=== PATIENT | female | born 1945 | race Caucasian/White ===

== ENCOUNTER → 2016-12-26 | Outpatient (CLI) | payer MEDICARE ==
--- NOTE | 2016-12-27 15:43 | HM ---
Date Performed: 12/26/2016 Time Performed: 11:14:00 HOOKUP DATE: 12/26/16 11:14:00 AM Mon ANALYSIS START TIME: 12/26/2016 11:19:00 AM ANALYSIS END TIME: 12/27/2016 10:50:52 AM PATIENT AGE: 71 PATIENT HEIGHT PATIENT WEIGHT DRUG LIST PATIENT DIAGNOSIS: SYNCOPE TEST NARRATIVE: The patient's average heart rate was 75 BPM. Heart rates greater than 120 B PM were noted < 1% of the time. No episodes of bradycardia were noted. No pauses exceeding 2.0 s econds were noted. 172 ventricular ectopics, which represented < 1% of the total beat count, were noted. The highest ventricular ectopic frequency occurred from 01:00 PM to 02:00 PM Mon. During th is time 28 VE(s) occurred. Ventricular ectopics were observed as 166 isolated beat(s) and as 3 coupl et(s). No runs were noted. 15 supraventricular ectopics, which represented < 1% of the total buddy t count, were noted. The highest supraventricular ectopic frequency occurred from 01:00 AM to 02:00 AM Tue. During this time 3 SVE(s) occurred. Multiple episodes of ST depression (defined as -1.0 mm or more) were noted in channel 1. The maximum depression of -1.8 mm occurred at 06:15:36 PM Mon. No episodes of ST depression (defined as -1.0 mm or more) were noted in channel 2. No episodes of ST depression (defined as -1.0 mm or more) were noted in channel 3. No diary events were reporte d by the patient. TEST INTERPRETATION: Patient undergoes a holter monitor for evaluation of syncopy. No diary is provided. Only the expanded tracings are subject to interpretation. The expanded tracings show a hear t rate varing from 54 to 124 bpm. Patient in Sinus rhythm throughout the monitoring session. There were occasional PAC's and PVC's. There were occasional coup lets but no ventricular tachycardia. There are rear episodes on nonsustained supraventricular tachyca rdia. No significant angelito arrhythmias or AV block were noted. There were episodes of ST segment depr ession this would be of uncertain significance as the device is not calibrated for body position, and there is no diary provided so is it is unknown as to whether the patient was complaining of chest di scomfort. The holter monitor would not be adequate in the evaluation of coronary artery disease. CONC LUSION: Normal sinus rhythm with occasional PAC's and PVC"s. Rear brief episodes of nonsustained supr aventricular tachycardia. No other significant tachy arrhythmias or angelito arrhythmias . No complex ve ntricular ectopy. Episodes of ST segment depression of uncertain significance. No diary provided so i t is unknown as to whether the patient is symtomatic. Signed by : Lexii Butt
== END ==
LOC: HCAV 11:58
PROVIDERS: ATTEND Family Medicine
DX: R55 Syncope and collapse (principal)
CPT/HCPCS: 93225; 93226